=== PATIENT | female | born 1980 | race Caucasian/White ===

== ENCOUNTER 2017-12-30 12:30 | Inpatient (IN) | payer BC, SELFPAY ==
[2017-12-30] VITALS (13 sets, daily range): BP systolic 108–152; BP diastolic 69–99; PULSE 86–143; RESP 14–25; TEMP 35.9–36.8; O2SAT 99–100; BMI 24.9; BMI 25.5
--- NOTE | 2017-12-30 12:42 | ED.ABDPAIN ---
HPI - Abdominal Pain General Chief Complaint: Abdominal Pain Stated Complaint: DARK STOOL,LETHARGIC Time Seen by Provider: 12/30/17 12:41 Source: patient Mode of arrival: ambulatory Limitations: no limitations History of Present Illness HPI narrative: Otherwise healthy 37-year-old female here for evaluation of dizziness and dark-colored stools. Patient states that for the past several years she has been taking Excedrin on a daily basis for headaches which controls her headaches. She states that approximately a 4 days ago she had an onset of black tarry diarrhea. Has had multiple episodes of this over the past 4 days. No abdominal pain. No vomiting. States that yesterday she was climbing a short flight of stairs in became very fatigued and lightheaded. She has not felt fatigued and lightheaded today. Stated she started her menstrual cycle yesterday. She does state that she has heavy menstrual cycles that normally last 4-5 days in the 1st couple days are heavy is. No prior abdominal surgeries. Has not taken anything at home for this. Related Data Allergies Allergy/AdvReac Type Severity Reaction Status Date / Time No Known Drug Allergies Allergy Verified 12/30/17 12:40 Review of Systems Constitutional Denies body ache(s), Denies chills, Reports fatigue (Yesterday while climbing stairs none today), Denies fever(s) and Denies headache(s) Eyes Denies diplopia ENT Ears, Nose, Mouth, and Throat: Denies vertigo, Denies dizziness and Denies headache(s) Cardiovascular Denies chest pain, Reports rapid heart rate, Denies irregular heart rhythm, Denies palpitations and Denies dyspnea Respiratory Denies chest congestion, Denies cough and Denies dyspnea Gastrointestinal Gastrointestinal: Denies abdominal pain, Reports melena, Denies bloating, Reports change in bowel habits, Reports change in stool character, Denies coffee ground emesis, Denies constipation, Denies cramping, Reports diarrhea, Reports loose stools, Denies nausea and Denies vomiting Genitourinary Denies dysuria and Reports vaginal discharge (Currently on her menstrual cycle) Musculoskeletal Denies myalgias, Denies arthralgias and Denies muscle cramps Integumentary/Breasts Denies lesions, Denies rash and Denies wounds Neurologic Denies vertigo, Denies dizziness and Denies headache(s) Endocrine Reports fatigue (Yesterday while climbing stairs none today) and Denies palpitations Hematologic/Lymphatic Denies easy bleeding and Denies easy bruising [facility] Social History Smoking Status: Never smoker Exam Initial Vital Signs Initial Vital Signs: Vital Signs Temperature 98.2 F 12/30/17 12:35 Pulse Rate 140 H 12/30/17 12:35 Respiratory Rate 22 12/30/17 12:35 Pulse Oximetry 99 12/30/17 12:35 Const General: cooperative, healthy appearing, comfortable, well developed and well groomed Nutritional Appearance: average body habitus and well nourished HENMT Head: normal to inspection, normocephalic and atraumatic Eyes Conjunctivae: other (Somewhat pale) Resp Effort & Inspection: normal respiratory effort Auscultation: clear to auscultation bilaterally Cardio Rate: tachycardic Rhythm: regular rhythm Pulses: radial pulses present GI Inspection: normal to inspection and non-distended Palpation: soft, No firm, No guarding and No tender Rectal Exam: heme positive stool Skin Lesions: no lesions Rashes: no rashes Neuro General: alert, awake and oriented x3 Cognition: normal cognition Speech: speech normal Extrem General: normal to inspection and capillary refill normal Course Orders Ordered: ED Orders 12/30/17 12:41 EKG-12 Lead Stat 12/30/17 13:20 Basic Metabolic Panel Stat Complete Blood Count AUTO DIFF Stat Partial Thromboplastin Time Stat Test Serum,Qual Stat Prothrombin Time INR Stat Type and Screen Stat 12/30/17 14:45 Consult to General Surgery Routine Consult to Physician Routine Pantoprazole Sodium 80 mg/ (Sodium Chloride) 100 mls @ 10 mls/hr IV NOW ONE Stop: 12/31/17 00:10 Last Admin: 12/30/17 14:22 Dose: Not Given Pantoprazole Sodium 80 mg/ (Sodium Chloride) 100 mls @ 10 mls/hr IV NOW ONE Stop: 12/31/17 00:18 Last Admin: 12/30/17 14:22 Dose: 10 mls/hr Sodium Chloride (Normal Saline 0.9%) 1,000 mls @ 125 mls/hr IV CONT HUMERA Pantoprazole Sodium 80 mg/ (Sodium Chloride) 100 mls @ 10 mls/hr IV CONT HUMERA Discontinued Medications Sodium Chloride (Normal Saline 0.9%) 1,000 mls @ 1,000 mls/hr IV BOLUS ONE Stop: 12/30/17 14:05 Last Admin: 12/30/17 13:14 Dose: 1,000 mls/hr Pantoprazole Sodium 80 mg/ (Sodium Chloride) 100 mls @ 10 mls/hr IV NOW ONE Stop: 12/30/17 23:24 Pantoprazole Sodium 80 mg/ (Sodium Chloride) 100 mls @ 10 mls/hr IV CONT HUMERA Lorazepam (Ativan) 1 mg IV NOW ONE Stop: 12/30/17 13:11 Last Admin: 12/30/17 13:19 Dose: 1 mg Vital Signs - 8 hr 12/30/17 12:35 12/30/17 12:46 12/30/17 13:00 Temperature 98.2 F 97.8 F Pulse Rate 140 H 143 H 117 H Respiratory Rate 22 18 14 Blood Pressure [Right Arm] 152/99 H 141/99 H Pulse Oximetry 99 100 100 12/30/17 13:30 12/30/17 14:00 12/30/17 14:30 Temperature Pulse Rate 115 H 118 H 108 H Respiratory Rate 25 H 16 22 Blood Pressure [Right Arm] 108/91 H 129/78 H 119/78 Pulse Oximetry 100 100 100 MDM - Abdominal Pain Lab Data Attestation: I reviewed the patient's lab results. Result diagrams: 12/30/17 13:20 12/30/17 13:20 Lab Results 12/30/17 12/30/17 12/30/17 Range/Units 13:20 13:20 13:20 WBC 5.0 (4.5-11.0) X10^3/uL RBC 3.44 L (4.0-5.2) X10^6/uL Hgb 10.5 L (12.0-16.0) g/dL Hct 30.5 L (36-46) % MCV 88.6 (80-100) fL MCH 30.4 (26-34) PG MCHC 34.3 (30-36) % RDW 12.6 (11.6-14.8) % Plt Count 185 (150-400) X10^3/uL Neut % (Auto) 67.5 (50-75) % Lymph % (Auto) 25.5 (25-40) % [place] % (Auto) 6.0 (3-14) % Eos % (Auto) 0.4 L (2-4) % Baso % (Auto) 0.6 (0-2) % Neut # (Auto) 3400 (0871-2733) /uL PT 12.1 (10.1-12.7) SECONDS INR 1.1 (0.9-1.3) APTT 26 L (26.4-36.2) SECONDS Sodium 139 (137-145) mmol/L Potassium 4.1 (3.4-5.1) mmol/L Chloride 104 (98-107) mmol/L Carbon Dioxide 27 (22-32) mmol/L BUN 17 (7-17) mg/dL Creatinine 0.60 (0.52-1.04) mg/dL Estimated GFR > 60.0 (>60) mL/min BUN/Creatinine Ratio 28.3 H (6-22) Glucose 104 H (70-100) mg/dL Calcium 8.8 (8.4-10.2) mg/dL Serum , Qual (Negative) Blood Type 12/30/17 12/30/17 Range/Units 13:20 13:20 WBC (4.5-11.0) X10^3/uL RBC (4.0-5.2) X10^6/uL Hgb (12.0-16.0) g/dL Hct (36-46) % MCV (80-100) fL MCH (26-34) PG MCHC (30-36) % RDW (11.6-14.8) % Plt Count (150-400) X10^3/uL Neut % (Auto) (50-75) % Lymph % (Auto) (25-40) % [place] % (Auto) (3-14) % Eos % (Auto) (2-4) % Baso % (Auto) (0-2) % Neut # (Auto) (2815-6366) /uL PT (10.1-12.7) SECONDS INR (0.9-1.3) APTT (26.4-36.2) SECONDS Sodium (137-145) mmol/L Potassium (3.4-5.1) mmol/L Chloride (98-107) mmol/L Carbon Dioxide (22-32) mmol/L BUN (7-17) mg/dL Creatinine (0.52-1.04) mg/dL Estimated GFR (>60) mL/min BUN/Creatinine Ratio (6-22) Glucose (70-100) mg/dL Calcium (8.4-10.2) mg/dL Serum , Qual Negative (Negative) Blood Type O Positive ECG Data Attestation: I personally reviewed and interpreted this ECG as follows: Prior ECG tracings: not available for review Interpretation: Sinus tachycardia Ventricular rate of 124 Normal axis Normal intervals Normal QRS Nonspecific ST T wave changes MDM Narrative Medical decision making narrative: Patient is otherwise healthy. Has GI bleed. Was given Protonix here in the emergency department. H&H 05/08. Did not transfuse here in the emergency department. Discussed the case with Dr. Rodriguez with General surgery who stated that he would consult on the patient for endoscopy. Discussed case with Dr. Moreira who will admit. Informed patient and family at bedside had of the admission diagnosis. Expressed understanding and agreement with plan. Discharge Plan Departure Patient Disposition: Admitted as Observation Clinical Impression: Acute GI bleeding
--- NOTE | 2017-12-30 13:06 | PC.NURSE ---
IV would not fully advance - good blood return - flushes easily - lab called for draw
[2017-12-30] MEDS: SODIUM CHLORIDE 0.9% 1,000 ML 1000 ML IV (13:14)
[2017-12-30] MEDS: LORazepam 2 MG/ML SYRINGE 1 MG IV (13:19)
[2017-12-30 13:34] LABS: Add Manual Diff / Slide Review NO; Basophils Percent Auto 0.6 % (0-2); Eosinophils Percent Auto 0.4 % (2-4); Hematocrit 30.5 % (36-46); Hemoglobin 10.5 g/dL (12.0-16.0); Lymphocytes Percent Auto 25.5 % (25-40); Mean Corpuscular HGB Conc 34.3 % (30-36); Mean Corpuscular Hemoglobin 30.4 PG (26-34); Mean Corpuscular Volume 88.6 fL (80-100); Neutrophils Absolute Auto 3400 /uL (3000-5900); Neutrophils Percent Auto 67.5 % (50-75); Platelet Count 185 X10^3/uL (150-400); Red Blood Cell Count 3.44 X10^6/uL (4.0-5.2); Red Cell Distribution Width 12.6 % (11.6-14.8)
[2017-12-30 13:38] LABS: INR 1.1 (0.9-1.3); Prothrombin Time 12.1 SECONDS (10.1-12.7)
[2017-12-30 13:40] LABS: PTT Partial Thromboplastin Tim 26 SECONDS (26.4-36.2)
[2017-12-30 13:41] LABS: BUN Creatinine Ratio 28.3 (6-22); Blood Urea Nitrogen 17 mg/dL (7-17); Calcium 8.8 mg/dL (8.4-10.2); Carbon Dioxide 27 mmol/L (22-32); Chloride 104 mmol/L (98-107); Estimated Glomerular Filt Rate > 60.0 mL/min (>60); Glucose 104 mg/dL (70-100); HEMOLYSIS < 15 (0-50); Potassium 4.1 mmol/L (3.4-5.1); Sodium 139 mmol/L (137-145)
[2017-12-30 14:14] LABS: Pregnancy Test Serum,Qual Negative (Negative)
[2017-12-30] MEDS: PANTOPRAZOLE 80 MG in SODIUM CHLORIDE 0.9% 100 ML 10 ML IV ×3 (14:22→18:17)
--- NOTE | 2017-12-30 15:13 | PC.NURSE ---
States she is feeling much improved
--- NOTE | 2017-12-30 15:23 | PC.NURSE ---
Readjusted IV tape - IV still not able to be advanced - infusing well, but not at prescribed rate
--- NOTE | 2017-12-30 17:13 | P.HP_ITS ---
History of Present Illness Date Patient Seen: 12/30/17 Time Patient Seen: 17:11 Chief complaint: Acute GI Bleed Narrative: 37-year-old female presents with dark stool and stomach discomfort lightheadedness for the last couple of days. She has been taking Excedrin pretty much regularly at least once or twice a day for headache and neck pain for many years. She has been doing fine with this up until the last week and she started having dark stool in symptoms. She has been noticing tachycardia and feeling lightheaded also Patient History Family & Social History Safety & Behavioral: Feels Safe in Current Yes Environment Been Physically Hurt or No Threatened By a Person Tobacco & Substance use: Smoking Status Never smoker alcohol intake frequency 0-2 drinks per day Substance Use Type does not use Meds Home Medications Medication Instructions Recorded Confirmed Type No Known Home Medications 12/30/17 12/30/17 History Allergies Allergy/AdvReac Type Severity Reaction Status Date / Time No Known Drug Allergies Allergy Verified 12/30/17 12:40 Review of Systems Review of Systems All systems reviewed & are unremarkable except as noted in HPI and below Exam Vital Signs (past 8 hours): - 12/30/17 12:35 12/30/17 12:46 12/30/17 13:00 Temperature 98.2 F 97.8 F Pulse Rate 140 H 143 H 117 H Respiratory Rate 22 18 14 Blood Pressure Blood Pressure [Right Arm] 152/99 H 141/99 H Pulse Oximetry 99 100 100 12/30/17 13:30 12/30/17 14:00 12/30/17 14:30 Temperature Pulse Rate 115 H 118 H 108 H Respiratory Rate 25 H 16 22 Blood Pressure Blood Pressure [Right Arm] 108/91 H 129/78 H 119/78 Pulse Oximetry 100 100 100 12/30/17 15:00 12/30/17 15:42 12/30/17 16:00 Temperature Pulse Rate 114 H 108 H 104 H Respiratory Rate 18 24 22 Blood Pressure Blood Pressure [Right Arm] 120/88 H 114/81 H 116/76 Pulse Oximetry 100 100 100 12/30/17 16:31 Temperature 96.7 F L Pulse Rate 110 H Respiratory Rate 16 Blood Pressure 133/83 H Blood Pressure [Right Arm] Pulse Oximetry 100 Oxygen Delivery Method Room Air Narrative Exam Narrative: Pleasant middle-aged female no acute distress HEENT exam unremarkable neck is supple Lungs clear Heart tachycardic Abdomen soft and nontender bowel sounds present Lower extremities no edema Skin warm and dry Neuro exam unremarkable Objective Labs Result Diagrams: 12/30/17 13:20 12/30/17 13:20 Labs: Laboratory Results - last 24 hr 12/30/17 12/30/17 12/30/17 13:20 13:20 13:20 WBC 5.0 RBC 3.44 L Hgb 10.5 L Hct 30.5 L MCV 88.6 MCH 30.4 MCHC 34.3 RDW 12.6 Plt Count 185 Neut % (Auto) 67.5 Lymph % (Auto) 25.5 [place] % (Auto) 6.0 Eos % (Auto) 0.4 L Baso % (Auto) 0.6 Neut # (Auto) 3400 PT 12.1 INR 1.1 APTT 26 L Sodium 139 Potassium 4.1 Chloride 104 Carbon Dioxide 27 BUN 17 Creatinine 0.60 Estimated GFR > 60.0 BUN/Creatinine Ratio 28.3 H Glucose 104 H Calcium 8.8 Serum , Qual Blood Type Antibody Screen 12/30/17 12/30/17 13:20 13:20 WBC RBC Hgb Hct MCV MCH MCHC RDW Plt Count Neut % (Auto) Lymph % (Auto) [place] % (Auto) Eos % (Auto) Baso % (Auto) Neut # (Auto) PT INR APTT Sodium Potassium Chloride Carbon Dioxide BUN Creatinine Estimated GFR BUN/Creatinine Ratio Glucose Calcium Serum , Qual Negative Blood Type O Positive Antibody Screen Negative Assessment & Plan Plan: Assessment/Plan Narrative: One. Acute GI bleed most likely gastritis or ulcer. She has anemia with hematocrit of 30 probably little bit dry expect this to drop as we hydrate her. She is tachycardic and symptomatic from this and will have her on observation status overnight place her on Protonix consult surgery for possible EGD.
--- NOTE | 2017-12-30 17:14 | PC.NURSE ---
Patient is A&O x3, pleasant and cooperative w/ staff and is able to make needs known when nec. patient is resting in bed w/ spouse at bedside. Patient denies any pain at this time but states she does feel a TRIVEDI coming on. Discussed w/ Dr. Moreira about TRIVEDI treatment and given NPO status if APAP was appropriate if perhapse Toradol IV would be better, states not with GI bleed and that Tylenol PO tx would be just fine. Patients IV is no longer infusing and new IV placement is nec. Discussed w/ patient and partner at bedside about seeking further medical treatment for re-occuring TRIVEDI and sugg. even seeing a TRIVEDI specialist. Discussed other medication options for terminal operations manager treatment. Patient and partner are both agreeable and understanding to seek specialty care for re-occurring TRIVEDI. Patient is a SBA as she was dizzy upon arrival to hosp. call light w/in reach, bed in low pos. no alarm active as patient is able to make needs known.
[2017-12-30 19:04] LABS: HEMOLYSIS < 15 (0-50); Iron 31 ug/dL (37-170)
[2017-12-30 19:13] LABS: Hemoglobin 9.7 g/dL (12.0-16.0)
[2017-12-30 19:15] LABS: Percent Iron Saturation 9 % (15-50); Total Iron Binding Capacity 347 ug/dL (265-497); Transferrin 271 mg/dL (206-381)
[2017-12-30] MEDS: ACETAMINOPHEN 325 MG TABLET 650 MG PO (21:09)
[2017-12-30] MEDS: SODIUM CHLORIDE 0.9% 1,000 ML 125 ML IV (22:06)
[2017-12-30 23:02] LABS: Hematocrit 25.6 % (36-46)
[2017-12-31] VITALS (17 sets, daily range): BP systolic 102–154; BP diastolic 51–92; PULSE 86–113; RESP 12–18; TEMP 36.3–37.1; O2SAT 97–100; BMI 25.5
--- NOTE | 2017-12-31 | PATH_ITS ---
[facility] Accession Number: [id number] . 01 Material submitted: . ANTRUM . 01 Clinical history: . A: H. PYLORI . 02 Diagnosis: Antrum, Biopsy: Gastric antral mucosa with no diagnostic abnormality. No evidence of Helicobacter organisms on H/E stain. Negative for intestinal metaplasia. Negative for dysplasia and malignancy. . . I/01/02/2018 . 02 Electronically signed: . Josiah Rodriguez MD, PhD, Pathologist NPI- [id number] . 01 Gross description: . Received one formalin-filled container, labeled with the patient's name, labeled antrum. The specimen consists of a 0.2 cm portion of tissue, entirely submitted in one cassette. ([id number]) /FRR . 02 Pathologist provided ICD-10: R10.13 . 02 CPT . 089753 Performed at: 01 [facility] [address] [facility], [place], [place] [id number] MD Caio Garvey MD Phone: [phone] Performed at: [address] [facility] [address] [place], [place] [id number] MD Wade Tariq MD Phone: [phone]
[2017-12-31] MEDS: PANTOPRAZOLE 80 MG in SODIUM CHLORIDE 0.9% 100 ML 10 ML IV ×2 (04:05→13:52)
[2017-12-31] MEDS: SODIUM CHLORIDE 0.9% 1,000 ML 125 ML IV ×3 (05:35→13:53)
[2017-12-31 05:53] LABS: Add Manual Diff / Slide Review NO; Basophils Percent Auto 0.5 % (0-2); Eosinophils Percent Auto 0.7 % (2-4); Hematocrit 23.8 % (36-46); Mean Corpuscular HGB Conc 33.5 % (30-36); Mean Corpuscular Hemoglobin 30.3 PG (26-34); Mean Corpuscular Volume 90.4 fL (80-100); Monocytes Percent Auto 7.3 % (3-14); Neutrophils Absolute Auto 2300 /uL (3000-5900); Neutrophils Percent Auto 53.5 % (50-75); Platelet Count 147 X10^3/uL (150-400); Red Blood Cell Count 2.64 X10^6/uL (4.0-5.2); Red Cell Distribution Width 12.6 % (11.6-14.8); White Blood Cell Count 4.3 X10^3/uL (4.5-11.0)
--- NOTE | 2017-12-31 10:21 | CM.DANOTE ---
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 Prior Living Arrangements House Household Members spouse Type of transporation used prior to Drives own vehicle admit Independent with ADL's Yes Is patient alert and oriented? Yes Caregiver for Another No Discharge Plan Home Transportation Arrangement Spouse/Princess # Review Status Complete Next Review Type Discharge Review DCP/Assessment continued: Reviewed chart. Patient is a 37yr old female admitted under OBS status with GI bleed. Primary payor is 1)[facility] out of State [facility]. PCP: none. Met with patient and spouse/Prinecss at bedside explained CM/SW role. Patient alert and oriented during interview. Patient reports that she is completely I at baseline with all ADL's. Patient does not anticipate any discharge planning needs. 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 Currently patient does not have PCP. Patient interested in obtaining PCP in [place]. Provided patient with names of local providers whom may be taking new patient's. Patient and spouse appreciative. Patient scheduled for EGD today. P: Home when medically stable. CM team to continue to follow if needs were to arise. FREDI Monsalve
--- NOTE | 2017-12-31 12:48 | OP_ITS ---
DATE OF SERVICE: 12/31/2017 PREOP DIAGNOSIS: Upper gastrointestinal (GI) bleeding secondary to peptic ulcer disease, either gastric or duodenal. POSTOP DIAGNOSIS: No active bleeding at the moment but patient has numerous small pre-pyloric gastric ulcers in the gastric antrum. Duodenum, first and second portion of the duodenum, duodenal bulb are normal. The esophagus is normal. PROCEDURE: Esophagogastroduodenoscopy and gastric antrum biopsy for H. pylori. SURGEON: Layo Rodriguez MD DESCRIPTION OF PROCEDURE: The patient was properly identified during surgical pause and under general endotracheal anesthesia, placed in the left lateral decubitus position. Flexible fiber-optic gastroscope inserted transorally from the hypopharynx into the upper duodenum. The esophagus is normal. It was photographed. The gastroscope was retroflexed. The fundus and EG junction on the gastric side are normal. No proximal ulcers. No bleeding. No Arabella- Garrett. There are numerous punctate ulcers in the prepyloric and these were not biopsied. They were not bleeding. One showed recent bleeding with the clot in the base of the ulcer. These were photographed. I did gastric biopsy in the antrum for H. pylori. The duodenal bulb, pyloric channel, first and second portions of the duodenum wre normal with no sign of ulcer disease or bleeding. The procedure was very well tolerated. Reid Buitrago - Colette/ doc#: [id number]/job#: [id number] dd: 12/31/2017 11:20:00 dt: 12/31/2017 12:37:00 DICTATING MD/COPIES TO: Layo Rodriguez MD COPIES MNE: KIERRA
[2017-12-31] MEDS: ACETAMINOPHEN 325 MG TABLET 650 MG PO (13:57)
[2017-12-31 14:39] LABS: Hematocrit 24.2 % (36-46)
--- NOTE | 2017-12-31 15:29 | PC.NURSE ---
day shift pt down to EGD. returned and was hungry. had full liquid diet. c/o of nausea afterwards and around 1500 had 400 ml emesis. MD notified and order for zofran obtained. protonix drip infusing without issue. hourly rounding provided, call light within reach.
--- NOTE | 2017-12-31 15:35 | P.PN_ITS ---
Subjective Date Patient Seen: 12/31/17 Time Patient Seen: 15:34 Interval history: More vomiting this afternoon Exam Vital Signs (past 8 hours): - 12/31/17 08:30 12/31/17 08:45 12/31/17 09:05 Temperature 98.7 F 98.7 F Pulse Rate 113 H 113 H Respiratory Rate 18 18 Blood Pressure 123/73 H Pulse Oximetry 100 100 100 12/31/17 09:48 12/31/17 10:26 12/31/17 10:31 Temperature 97.5 F L 97.5 F L Pulse Rate 111 H 100 H 100 H Respiratory Rate 16 13 13 Blood Pressure 123/84 H 118/78 117/83 H Pulse Oximetry 99 98 98 12/31/17 10:36 12/31/17 10:41 12/31/17 11:00 Temperature 97.3 F L Pulse Rate 98 H 96 H 95 H Respiratory Rate 14 12 16 Blood Pressure 118/76 119/68 130/91 H Pulse Oximetry 99 98 12/31/17 11:30 12/31/17 12:00 12/31/17 15:21 Temperature 97.4 F L 97.8 F 98 F Pulse Rate 112 H 112 H 109 H Respiratory Rate 16 16 16 Blood Pressure 154/92 H 137/83 H 134/78 H Pulse Oximetry 100 100 99 12/31/17 15:22 Temperature 97.8 F Pulse Rate 104 H Respiratory Rate 16 Blood Pressure 131/80 H Pulse Oximetry 100 Oxygen Delivery Method Room Air Narrative Exam Narrative: She is sitting up in the bed seems to be doing well in general no acute distress exam remains unchanged Objective Labs Result Diagrams: 12/31/17 14:30 12/30/17 13:20 Labs: Laboratory Results - last 24 hr 12/30/17 12/30/17 12/30/17 13:20 18:05 18:05 WBC RBC Hgb 9.7 L Hct 29.0 L MCV MCH MCHC RDW Plt Count Neut % (Auto) Lymph % (Auto) [place] % (Auto) Eos % (Auto) Baso % (Auto) Neut # (Auto) Iron 31 L TIBC 347 % Saturation 9 L Transferrin 271 Antibody Screen Negative 12/30/17 12/31/17 12/31/17 22:54 05:32 14:30 WBC 4.3 L RBC 2.64 L Hgb 8.0 L Hct 25.6 L 23.8 L 24.2 L MCV 90.4 MCH 30.3 MCHC 33.5 RDW 12.6 Plt Count 147 L Neut % (Auto) 53.5 Lymph % (Auto) 38.0 [place] % (Auto) 7.3 Eos % (Auto) 0.7 L Baso % (Auto) 0.5 Neut # (Auto) 2300 L Iron TIBC % Saturation Transferrin Antibody Screen Assessment & Plan Plan: Assessment/Plan Narrative: One. Acute GI bleed with acute blood loss anemia secondary to gastric ulcers from the anti-inflammatories and aspirin that she was using. Hematocrit stabilized at 24. Biopsies taken for H pylori during the endoscopy. Increasing nausea this afternoon after the procedure. She had some vomiting. I will keep her overnight due to the increased symptoms and add Carafate to her Protonix and probably discharged home on Monday pending the results of her hematocrit Quality VTE Deep Vein Thrombosis/Pulmonary Embolism Present on Admission: No
[2017-12-31] MEDS: ONDANSETRON 4 MG/2 ML INJ IV (15:36)
[2017-12-31] MEDS: SUCRALFATE 1 GM/10 ML ORAL SUSP PO ×2 (17:01→21:37)
[2017-12-31] MEDS: SODIUM CHLORIDE 0.9% 1,000 ML 75 ML IV (21:59)
[2018-01-01] MEDS: PANTOPRAZOLE 80 MG in SODIUM CHLORIDE 0.9% 100 ML 10 ML IV (00:12)
[2018-01-01 00:19] VITALS: O2SAT 99
[2018-01-01 00:29] VITALS: BP 127/78; PULSE 98; RESP 18; TEMP 36.7; O2SAT 100
--- NOTE | 2018-01-01 01:13 | PC.NURSE ---
Addendum entered by Natacha Banks R.N. 01/01/18 05:50: Complains of all the muscles in my neck and behind my head ache. States pain is 8/10 but declines offer of pain medication. Did accept ice pack. Original Note: Patient is alert and oriented. Breath sounds CTA with RA sat of 99%. HRR; is on tele and 0000 reading reported as SR Denies nausea. BT present and is passing flatus. Denies dysuria, frequency, urgency or incontinence. Is being assisted to bathroom by . Able to turn self in bed. Denies any pain, dizziness or lightheadedness. Protonix gtt continues to infuse per MD order. Fall risk score is medium; no bed alarm is currently being used.
[2018-01-01 05:52] VITALS: BP 121/52; PULSE 94; RESP 16; TEMP 36.9; O2SAT 99
[2018-01-01 06:06] LABS: Add Manual Diff / Slide Review NO; Basophils Percent Auto 0.6 % (0-2); Eosinophils Percent Auto 0.6 % (2-4); Hematocrit 22.6 % (36-46); Hemoglobin 7.7 g/dL (12.0-16.0); Lymphocytes Percent Auto 48.9 % (25-40); Mean Corpuscular HGB Conc 34.1 % (30-36); Mean Corpuscular Hemoglobin 30.7 PG (26-34); Mean Corpuscular Volume 90.1 fL (80-100); Monocytes Percent Auto 8.3 % (3-14); Neutrophils Absolute Auto 1800 /uL (3000-5900); Neutrophils Percent Auto 41.6 % (50-75); Platelet Count 152 X10^3/uL (150-400); Red Blood Cell Count 2.51 X10^6/uL (4.0-5.2); Red Cell Distribution Width 12.9 % (11.6-14.8); White Blood Cell Count 4.4 X10^3/uL (4.5-11.0)
[2018-01-01] MEDS: SUCRALFATE 1 GM/10 ML ORAL SUSP PO (07:36)
[2018-01-01 08:00] VITALS: BP 127/75; PULSE 95; RESP 16; TEMP 36.6; O2SAT 100; O2SAT 98
--- NOTE | 2018-01-01 08:20 | PM.DS.1 ---
History of Present Illness Date Patient Seen: 01/01/18 Time Patient Seen: 08:34 Chief complaint: Acute GI Bleed Narrative: Otherwise healthy 37-year-old female here for evaluation of dizziness and dark-colored stools. Patient states that for the past several years she has been taking Excedrin on a daily basis for headaches which controls her headaches. She states that approximately a 4 days ago she had an onset of black tarry diarrhea. Has had multiple episodes of this over the past 4 days. No abdominal pain. No vomiting. States that yesterday she was climbing a short flight of stairs in became very fatigued and lightheaded. She has not felt fatigued and lightheaded today. Stated she started her menstrual cycle yesterday. She does state that she has heavy menstrual cycles that normally last 4-5 days in the 1st couple days are heavy is. No prior abdominal surgeries. Has not taken anything at home for this. Discharge Providers Date of admission: 12/30/17 16:10 Consults: 12/30/17 14:45 Consult to General Surgery Routine Comment: Consulting Provider: Layo Rodriguez Reason for consultation: GI bleed Has provider been notified: Yes Consult to Physician Routine Comment: Consulting Provider: Roderick Moreira Reason for consultation: Admission Has provider been notified: Yes 12/30/17 17:08 Consult to Physician Routine Comment: Consulting Provider: Layo Rodriguez Reason for consultation: gi bleed Has provider been notified: Yes Discharge provider: LUCIUS Rueda Summary Discharge Diagnosis: 1. Acute GI bleed secondary to bleeding gastric ulcers 2. Acute blood loss anemia secondary to 1. Hospital Course: This is a summary for 2 day stay for this 37-year-old patient came in with acute upper GI bleed. She was feeling lightheaded, normotensive, tachycardic rates in the 140s to 120s on admission. Her hemoglobin and hematocrit on admission were 10.5 and 30.5 respectively. She has had no other signs of active bleeding. She was started on IV fluids, placed NPO, and had an upper GI performed. There was no active bleeding at the time of the upper GI but the patient had small numerous pre-pyloric punctate gastric ulcers in the gastric antrum. The duodenum, 1st and 2nd portion of the duodenum, and duodenal bulb were normal. Esophagus was also normal. A gastric biopsy for H pylori was obtained. She is positive fluid balance of about 1.5 L at this time. Is currently on her period which she says is a heavy menstrual flow. Her hemoglobin and hematocrit at time of discharge was 7.7 and 22.6 respectively. She is no longer tachycardic and denies lightheadedness. She will be placed on sulfate, iron, and Protonix and follow up as an outpatient. Exam Vital Signs (past 8 hours): - 01/01/18 00:29 01/01/18 05:52 Temperature 98.0 F 98.4 F Pulse Rate 98 H 94 H Respiratory Rate 18 16 Blood Pressure 127/78 H 121/52 H Pulse Oximetry 100 99 Oxygen Delivery Method Room Air Oxygen Flow Rate 0 Narrative Exam Narrative: Sitting in bedside chair in no acute distress. Const General: cooperative, healthy appearing and comfortable Nutritional Appearance: average body habitus Orientation: alert, awake and oriented x3 HENMT Head: normal to inspection, normocephalic and atraumatic Eyes General: appearance normal, both eyes and all related structures Pupils: PERRL Neck Neck: normal visual inspection, trachea midline and supple Chest Chest: normal inspection of the chest Resp Effort & Inspection: normal respiratory effort and able to speak in complete sentences Auscultation: clear to auscultation bilaterally Cardio Rate: regular rate Rhythm: regular rhythm Heart Sounds: S1 normal and S2 normal GI Inspection: normal to inspection Palpation: soft Auscultation: normal bowel sounds Other: Nontender to palpation Back/Spine/Pelvis Back: normal to inspection Skin General: no rashes or lesions noted, dry skin and warm Neuro General: alert, awake and oriented x3 Cognition: normal cognition Speech: speech normal Motor: muscle tone normal throughout Sensory Exam: no sensory deficits noted Extrem General: normal to inspection and capillary refill normal Psych Appearance: grossly normal Mental Status: mental status grossly normal Speech and Movement: speech and movement normal Mood: congruent mood Affect: normal affect Attitude: cooperative Thought Process: normal Thought Content: normal Judgment: judgment good Objective Labs Result Diagrams: 01/01/18 05:45 12/30/17 13:20 Labs: Laboratory Results - last 24 hr 12/31/17 01/01/18 14:30 05:45 WBC 4.4 L RBC 2.51 L Hgb 7.7 L Hct 24.2 L 22.6 L MCV 90.1 MCH 30.7 MCHC 34.1 RDW 12.9 Plt Count 152 Neut % (Auto) 41.6 L Lymph % (Auto) 48.9 H Thurston % (Auto) 8.3 Eos % (Auto) 0.6 L Baso % (Auto) 0.6 Neut # (Auto) 1800 L Discharge Plan Discharge Plan Patient Disposition: Home, Self-Care Discharge comment: Needs to establish primary care provider. Patient may follow up with [facility]. Discharge Med Rec/Prescriptions Prescriptions: New sucralfate 100 mg/mL Suspension 1 gm PO ACHS 30 Days RF: 1 pantoprazole [Protonix] 40 mg tablet,delayed release (DR/EC) 40 mg PO BEDTIME Qty: 30 RF: 0 ferrous sulfate 325 mg (65 mg iron) tablet,delayed release (DR/EC) 325 mg PO DAILY Qty: 30 RF: 3 Follow up/Referrals: Roderick Moreira MD [Physician] - 1 Week Provider Discharge Instructions Diet: Diet as Tolerated and Regular Diet comment: Avoid alcohol intake. Activity: As tolerated Oxygen: Room air Visit Report/Discharge Packet Instructions: DI for Gastrointestinal Bleeding, Gastrointestinal Bleeding Visit Report Forms: Stroke Signs & Symptoms Discharge Data Attending Provider: Roderick Moreira Admit Date/Time: 12/30/17 16:10 Quality VTE Deep Vein Thrombosis/Pulmonary Embolism Present on Admission: No
--- NOTE | 2018-01-01 09:57 | PC.NURSE ---
Patient HR 105, O2 100% RA. Ambulating in room and hallways IND. Complaining of headache and feeling achy all over, but refusing pain meds. NOC shift applied a cold, wet compress to forehead. Nathan offered two warm blankets to client and I provided pt with a warm pack. Possible DC today.
== END 2018-01-01 10:50 | disposition home or self-care (01) | DRG 378 ==
LOC: ED 14:43 → AC 12-31 10:03
PROVIDERS: Surgery; Admitting Provider Internal Medicine; Emergency Provider Emergency Medicine; Visit Provider Internal Medicine
PROC: 0DJ08ZZ Inspection of Upper Intestinal Tract, Via Natural or Artificial Opening Endoscopic (ICD-10-PCS; CPT 43235; principal; 2017-12-31 09:25)
DX: K25.0 Acute gastric ulcer with hemorrhage (principal); D62 Acute posthemorrhagic anemia; G43.909 Migraine, unspecified, not intractable, without status migrainosus; R11.2 Nausea with vomiting, unspecified
CPT/HCPCS: 36415; 36592; 80048; 81003; 81025; 83540; 83550; 84703; 85014; 85018; 85025; 85610; 85730; 86850; 86900; 86901; 93005; 93010; 96361; 96365; 96366; 96375; 99284; G0378; C9113; J0330; J2060; J2405; J2704; J3010

== ENCOUNTER → 2018-03-09 15:35 | Outpatient (CLI) | payer BC, SELFPAY ==
[2017-12-30 17:57] VITALS: BMI 25.5
[2018-03-09 16:42] LABS: Iron 38 ug/dL (37-170)
[2018-03-09 17:17] LABS: Ferritin 5.5 ng/mL (6.27-137)
== END ==
PROVIDERS: Visit Provider Internal Medicine
DX: D50.9 Iron deficiency anemia, unspecified (principal); K25.0 Acute gastric ulcer with hemorrhage
CPT/HCPCS: 36415; 82728; 83540

== ENCOUNTER → 2019-06-03 12:04 | Outpatient (CLI) | payer BC, SELFPAY ==
[2017-12-30 17:57] VITALS: BMI 25.5
--- NOTE | 2019-06-03 | DI.RAD.S_ITS ---
PROCEDURE: XR HIP W PEL IF DONE RT 2V INDICATIONS: XR PAIN IN RT HIP TECHNIQUE: AP pelvis with lateral view(s) of the right hip. COMPARISON: None. FINDINGS: Bones: No fractures or dislocations. Pelvic ring appears intact. No suspicious bony lesions. Soft tissues: The visualized bowel gas pattern is normal. No suspicious soft tissue calcifications. IMPRESSION: No source of asymmetric right found. Dictated by: Frederick Forde M.D. on 06/03/2019 at 13:16 Approved by: Frederick Forde M.D. on 06/03/2019 at 13:17
== END ==
PROVIDERS: PCP Physician Assistant; Visit Provider Physician Assistant
DX: M25.551 Pain in right hip (principal)
CPT/HCPCS: 73502

== ENCOUNTER → 2021-08-11 08:10 | Outpatient (CLI) | payer BC, SELFPAY ==
[2017-12-30 17:57] VITALS: BMI 25.5
--- NOTE | 2021-08-11 | DI.US.S_ITS ---
PROCEDURE: US ABDOMEN COMPLETE INDICATIONS: PAIN TECHNIQUE: Real-time scanning was performed of the abdominal and retroperitoneal organs, with image documentation. COMPARISON: None. FINDINGS: Liver: Normal size. Increased in echogenicity. Gallbladder: Not significantly distended. There is a non mobile gallstone at the neck measuring 0.9 cm. Normal gallbladder wall thickness. No pericholecystic fluid. Negative sonographic Anderson's sign. Biliary ducts: Intrahepatic bile ducts are non-dilated. Extrahepatic bile duct caliber measures 3 mm. Normal is 6-7 mm or less in diameter, or 10 mm or less post-cholecystectomy. Pancreas: Visualized portions of the pancreas are sonographically normal. Spleen: Spleen is normal in size and homogeneous in echotexture. Measures 9.2 cm. Kidneys: Kidneys are normal in size and echotexture. Right kidney measures 10 cm long; left kidney measures 9.2 cm long. No hydronephrosis or nephrolithiasis. No solid masses. Aorta: Visualized aorta is normal in caliber at less than 3 cm. Iliacs: Proximal common iliac arteries are normal in caliber at less than 2.5 cm. IVC: Intrahepatic inferior vena cava is patent. Miscellaneous: No free abdominal fluid. IMPRESSION: 1. No acute cholecystitis demonstrated. No pericholecystic fluid. Negative sonographic Anderson's sign. However, there is a nonmobile gallstone at the gallbladder neck measuring 0.9 cm. 2. Increased hepatic echogenicity most consistent with hepatic steatosis. Other forms of hepatocellular disease could have similar appearance. 3. No hydronephrosis. Dictated by: Ben Renteria M.D. on 08/11/2021 at 9:17 Approved by: Ben Renteria M.D. on 08/11/2021 at 9:19
== END ==
PROVIDERS: PCP Physician Assistant; Referring Provider Physician Assistant; Visit Provider Internal Medicine
DX: R10.84 Generalized abdominal pain (principal); K80.20 Calculus of gallbladder without cholecystitis without obstruction
CPT/HCPCS: 76700

== ENCOUNTER → 2021-12-27 15:01 | Outpatient (CLI) | payer OTHER, SELFPAY ==
[2017-12-30 17:57] VITALS: BMI 25.5
[2021-12-27 15:58] LABS: COVID19 -Nasal RAPID Negative (Negative)
== END ==
PROVIDERS: PCP Physician Assistant; Visit Provider Surgery
DX: Z20.822 Contact with and (suspected) exposure to COVID-19 (principal); Z01.812 Encounter for preprocedural laboratory examination
CPT/HCPCS: 87635; C9803

== ENCOUNTER 2021-12-28 12:50 | Day surgery (SDC) | payer OTHER, SELFPAY ==
[2017-12-30 17:57] VITALS: BMI 25.5
[2021-12-23 14:05] VITALS: BMI 31.8
[2021-12-28] VITALS (7 sets, daily range): BP systolic 126–143; BP diastolic 63–94; PULSE 91–100; RESP 11–18; TEMP 36.2–36.9; O2SAT 97–98; BMI 30.9
--- NOTE | 2021-12-28 | PATH_ITS ---
[facility] Accession Number: [id number] . 01 Material submitted: . gallbladder - GALLBLADDER . 01 Diagnosis: Gallbladder, Cholecystectomy: Gallbladder with cholesterolosis and cholelithiasis. One benign cystic duct lymph node (0). MRV 12/31/2021 0932 Local . 01 Electronically signed: . Erlinda Sharp MD, Pathologist NPI- [id number] . 01 Gross description: . Received in formalin labeled with the patient's name and gallbladder consists of an intact gallbladder measuring 8.6 x 2.7 x 2.1 cm with dusky ambriz-green, smooth, glistening serosa, and a roughened unremarkable hepatic surface. The cystic duct is received closed with a clamp, is inked blue, and a pericystic lymph node candidate is identified measuring 1.1 cm in greatest dimension. Opening the specimen reveals the lumen to be filled with green viscous bile and a single yellow bosselated calculus measuring 1.5 cm in greatest dimension. The mucosa is dark green and velvety with no yellow discoloration, polyps, or lesions identified. The butterfield range from 0.1 to 0.3 cm thick. Human Resources Services Specialist section to include one-half of the lymph node candidate, cystic duct margin, and full-thickness sections are submitted in cassette A1. ([id number]) /MRV 12/29/2021 1414 Local . 01 Pathologist provided ICD-10: K80.70 . 01 CPT . 812326 Specimen Comment: A courtesy copy of this report has been sent to [phone] Performed at: 01 [facility] [address] [place] [address] [address] [facility], [place], [place] [id number] MD Caio Garvey MD Phone: [phone]
[2021-12-28] MEDS: LACTATED RINGERS 1,000 ML 42 ML IV (13:33)
--- NOTE | 2021-12-28 13:48 | PM.HP.1 ---
History of Present Illness History of Present Illness Date Patient Seen: 12/28/21 Time Patient Seen: 13:48 Chief complaint: SDC Narrative: Reid is a 41-year-old woman who has abdominal pain and was found to have a gallstone on ultrasound. Please see the office note from October for details. Patient History Medical History Anesthesia Easy bruisability Gastric ulcer Headache Surgical History History of esophagogastroduodenoscopy (EGD) (12/2017) Family & Social History Family History (Updated 12/30/17 @ 17:55 by Felipe Vargas RN) Father Diabetes insipidus Hypertension Grandmother Lymphoma in remission Social History: household members spouse Tobacco & Substance use: Tobacco type cigarettes Smoking Status Former smoker alcohol intake current alcohol intake frequency holiday/special occasion Substance Use Type does not use,marijuana Meds Home Medications and Allergies Home Medications Medication Instructions Recorded Confirmed Type acetaminophen 500 mg capsule 500 mg PO Q6H PRN Pain 10/29/21 12/28/21 History alprazolam 0.25 mg tablet 0.25 mg PO ONCE PRN Unknown 10/29/21 12/28/21 History Allergies Allergy/AdvReac Type Severity Reaction Status Date / Time No Known Drug Allergies Allergy Verified 12/28/21 13:16 Exam Vital Signs (past 8 hours): - 12/28/21 13:18 Temperature 97.8 F Pulse Rate 94 H Respiratory Rate 16 Blood Pressure 143/94 H Pulse Oximetry 98 Oxygen Delivery Method Room Air Oxygen Delivery Method Room Air Const General: No acute distress Resp Effort & Inspection: normal respiratory effort Assessment & Plan Assessment and plan (1) Gallstones: Status: Acute COVID-19 COVID-19 status: Negative Result date/Date tested (Pos, Neg/Pending): 12/27/21 Time Spent With Patient Critical Care time: I spent a total of [] minutes of critical care time on this patient's care today; this time is exclusive of procedural time.
[2021-12-28] MEDS: CEFAZOLIN 2 GM/20 ML SYRINGE IV (14:48)
--- NOTE | 2021-12-28 15:03 | SUR.OPER ---
Supine on padded OR bed, head on pillow, safety belt at thigh, left arm padded and tucked at side. Right arm secured on padded arm board <90 degrees abduction. Legs uncrossed. Padded footboard in place. Tape over blanket to secure lower legs.
[2021-12-28] MEDS: BUPIVACAINE 0.5% (PF) VIAL 30 ML INJ (15:16)
[2021-12-28] MEDS: LIDOCAINE 1% W/EPI 20 ML INJ (15:19)
--- NOTE | 2021-12-28 15:51 | P.OP_ITS ---
Operative Date/Time/Diagnoses Date of procedure: 12/28/21 Time of procedure: 15:51 Pre-op diagnosis: Gallstones Post-op diagnosis: same Procedure & Clinicians Procedure: Laparoscopic cholecystectomy Same procedure as scheduled: Yes Surgeon: Lenin Broderick Anesthesia Type: General Operative Notes Procedure in detail: The patient was given preoperative antibiotic. The patient was brought to the operating room, placed on the table in the supine position. General endo tracheal anesthesia was induced. The abdomen was prepped and draped. A time- out was performed. We made a 1 cm infraumbilical incision. We dissected down to the base of the umbilical stalk using cautery. We grasped the umbilical stalk with a Vesna clamp to elevate the abdominal wall. We scored the fascia in the midline with cautery over 1 cm. We pierced the peritoneum with a Peon clamp. The Liliya port was placed and the abdomen was insufflated to 15 mmHg. A 5 mm 30 degree laparoscopic was inserted. There was no evidence of any injury from the entry. Next, we placed 5 mm ports in the subxiphoid position and right upper quadrant at the midclavicular line and anterior axillary line. Patient was then positioned in reverse Trendelenburg and the table was tilted to the left. The gallbladder was grasped at the dome and retracted cephalad. There were some adhesions of mesenteric tissue to the right liver which were carefully dissected with cautery to allow full retraction of the gallbladder. We then dissected the cystic structures with a combination of hook cautery and blunt dissection. We obtained a critical view. We placed hemoclips on the cystic duct and artery and divided the cystic duct and artery sharply between the clips. The gallbladder was then dissected off the liver and placed in a specimen retrieval bag. We irrigated the right upper quadrant and all the aspirate returned clear. We then removed the 5 mm ports under direct vision we removed the Liliya port. We then injected some local into the fascia and closed the fascia with 2 interrupted 0 Vicryl sutures. The skin incisions were closed with 4 Monocryl and Steri-Strips were applied. Band-Aids were applied over the Steri-Strips. EBL: 30 mL Specimen: Gallbladder Post-operative Condition: stable Disposition: PACU
[2021-12-28] MEDS: OXYCODONE IR 5 MG TABLET PO (16:11)
[2021-12-28] MEDS: ONDANSETRON 4 MG/2 ML INJ IV (16:12)
== END 2021-12-28 16:47 | disposition home or self-care (01) ==
PROVIDERS: PCP Physician Assistant; Referring Provider Surgery; Visit Provider Surgery
PROC: 0FT44ZZ Resection of Gallbladder, Percutaneous Endoscopic Approach (ICD-10-PCS; CPT 47562; principal; 2021-12-28 13:45)
DX: K80.20 Calculus of gallbladder without cholecystitis without obstruction (principal); Z87.891 Personal history of nicotine dependence
CPT/HCPCS: 47562; J0690; J1100; J1170; J1885; J2250; J2405; J2704; J3010

== ENCOUNTER → 2024-01-22 15:09 | Outpatient (CLI) | payer BC, SELFPAY ==
[2017-12-30 17:57] VITALS: BMI 25.5
--- NOTE | 2024-01-22 15:15 | DI.RAD.S_ITS ---
PROCEDURE: XR CERVICAL SPINE 2V OR 3V INDICATIONS: neck pain, R>L TECHNIQUE: 3 view(s) of the cervical spine were acquired. COMPARISON: None. FINDINGS: Bones: No fractures or dislocations to the C7 level. The lateral masses of C1 appear intact on the odontoid view. No suspicious bony lesions. Mild joint space narrowing and endplate degenerative changes at C5-C6. Soft tissues: No prevertebral soft tissue swelling. IMPRESSION: No displaced fracture or traumatic subluxation. Mild focal degenerative changes at C5-C6. If symptoms persist with conservative management, consider cross-sectional imaging such as CT or MRI. Approved by: Christine Basilio M.D.,Ph.D. on 01/22/2024 at 21:24
== END ==
PROVIDERS: PCP Physician Assistant; Referring Provider Physician Assistant; Visit Provider Physician Assistant
DX: M47.812 Spondylosis without myelopathy or radiculopathy, cervical region (principal); M54.2 Cervicalgia
CPT/HCPCS: 72040

== ENCOUNTER → 2024-06-17 13:10 | Outpatient (CLI) | payer BC, SELFPAY ==
[2017-12-30 17:57] VITALS: BMI 25.5
[2024-06-17 13:59] LABS: Hemoglobin A1C% w Est Avg Glu 5.3 % (4.0-6.0)
[2024-06-17 14:26] LABS: Free T4, Direct Thyroxine 1.01 ng/dL (0.78-2.19)
[2024-06-17 14:40] LABS: Thyroid Stimulating Hormone 1.14 uIU/mL (0.47-4.68)
[2024-06-17 15:02] LABS: Vitamin D 25 Hydroxy (D3) 30.1 ng/mL (30.0-100.0)
== END ==
LOC: LAB 13:13
PROVIDERS: PCP Physician Assistant; Referring Provider Physician Assistant; Visit Provider Physician Assistant
DX: E55.9 Vitamin D deficiency, unspecified (principal); Z13.6 Encounter for screening for cardiovascular disorders
CPT/HCPCS: 36415; 82306; 83036; 84439; 84443